=== PATIENT | male | born 1950 | race Caucasian/White ===

== ENCOUNTER 2024-01-24 11:49 | Day surgery (SDC) | payer OTHER ==
[2024-01-24] VITALS (10 sets, daily range): BP systolic 138–154; BP diastolic 79–92
[~2024-01-24] VITALS: Ht 175.3 cm; Wt 107.9 kg
[~2024-01-24 11:49] MED LIST: ASPIR 8181 M1 PO; ATOR20 PO; BUPR150ER PO; ESCI20 PO; FURO20 PO; HYDACE10B PO; IBUP800 PO; JARDIANCE10 MG PO; METF500 PO; METO25ER PO; NALOXONE HCL4 MG; TOLT4 PO
[2024-01-24] MEDS ORDERED: Lactated Ringer's 1,000 ML IV SCH (12:00)
[2024-01-24] MEDS ORDERED: CeFAZolin Sodium 2,000 MG in NS 100 ML IV SCH (12:00)
[2024-01-24] MEDS ORDERED: propofoL 20 ML IV ONE (12:21)
[2024-01-24] MEDS ORDERED: Sugammadex Sodium 200 MG/2ML SDV (100 MG/ML) ONE (12:21)
[2024-01-24] MEDS ORDERED: FentaNYL Citrate 50 MCG/ML 2 ML Injection ONE (12:21)
[2024-01-24] MEDS ORDERED: CeFAZolin Sodium 2,000 MG VIAL ONE (12:27)
[2024-01-24] MEDS ORDERED: Bupivacaine 0.5% HCl 5 MG/ML 30MLVIAL ONE (12:50)
--- NOTE | 2024-01-24 13:14 | NUR ---
History, Chart, Medications and Allergies reviewed before start of procedure. Patient up to Ambulate independently. Gait steady. Pre-Op teaching done. Pt verbalizes understanding. Patient confirms NPO status and agrees with scheduled surgery. Patient reports completing Chlorhexadine shower X1 prior to admission to hospital. Surgical site prepped with 2% Chlorhexidine cloth wipe. Lungs clear T/O to Auscultation. Patient States Post-Procedure ride home has been arranged.
[2024-01-24] MEDS ORDERED: ePHEDrine Sulfate 50 MG/ML 1ML Injection ONE (13:34)
[2024-01-24] MEDS ORDERED: HYDROmorphone HCl/Pf 1MG SYR ONE (14:44)
[2024-01-24] MEDS ORDERED: Rocuronium Bromide 10 MG/ML 5ML Injection IV ONE (14:57)
[2024-01-24] MEDS ORDERED: OxyCODONE 5 mg/Acetamin 325 mg TABLET PO PRN (15:45)
--- NOTE | 2024-01-24 16:43 | NUR ---
1613 REPORT RECEIVED FROM FUNMI OBRIEN. VSS. PT ON RA. PT ABLE TO REPOSITION SELF IN BED. PT REQUESTING PO FOOD AND FLUIDS AND TOLERATING THEM WELL. PT DENIES PAIN, NAUSEA OR OTHER DISCOMFORTS. PT HAS 3 INCISION SITES TO ABDOMEN COVERED WITH DERMABOND THAT ARE C/D/I.
--- NOTE | 2024-01-24 16:45 | NUR ---
Patient up to Ambulate independently. Gait steady. VSS AND CONSISTENT WITH PT BASELINE. PT HAS NO COMPLAINTS AND VERBALIZES READINESS TO GO HOME. Discharge instructions reviewed with patient. Patient verbalizes understanding. Copy given to patient to take home. Dressing to procedure site clean, dry, intact with no visible drainage, swelling, erythema or bruising noted. Patient States Post-Procedure ride home has been arranged. Discharged via wheelchair to private car for ride home. PT BELONGINGS RETURNED TO PT.
== END 2024-01-24 16:47 | disposition home or self-care (01) ==
LOC: ORSCMMR 11:49 → ORD 14:30 → ORSCMMR 16:47
PROVIDERS: Surgery
PROC: 3E0T3BZ Introduction of Anesthetic Agent into Peripheral Nerves and Plexi, Percutaneous Approach (ICD-10-PCS; principal; 2024-01-24 14:30)
PROC: 0YU64JZ Supplement Left Inguinal Region with Synthetic Substitute, Percutaneous Endoscopic Approach (ICD-10-PCS; principal; 2024-01-24 14:30)
DX: K40.30 Unilateral inguinal hernia, with obstruction, without gangrene, not specified as recurrent (principal); K66.0 Peritoneal adhesions (postprocedural) (postinfection); I10 Essential (primary) hypertension; E78.5 Hyperlipidemia, unspecified; J44.9 Chronic obstructive pulmonary disease, unspecified; Z87.891 Personal history of nicotine dependence; E11.9 Type 2 diabetes mellitus without complications; Z79.84 Long term (current) use of oral hypoglycemic drugs; Z79.899 Other long term (current) drug therapy; Z79.82 Long term (current) use of aspirin; E66.9 Obesity, unspecified; Z68.34 Body mass index [BMI] 34.0-34.9, adult
CPT/HCPCS: 82947; C1781; J0690; J1170; J1171; J2704; J3010; J7120

== ENCOUNTER 2024-07-21 10:46 | Day surgery (SDC) | payer OTHER ==
[~2024-07-21] VITALS: Ht 177.8 cm; Wt 114.7 kg
[~2024-07-21 10:46] MED LIST changes: +Balanced Salt Epinephrine Irrigation Solution 500 mL IR SCH; +Diazepam 5 MG Tab PO PRN; +Diazepam 5 MG Tab PO SCH; +Lidocaine HCl/Pf 1% 5 ML VIAL XX SCH; +Midazolam HCl 1MG / ML 2ML Vial ONE; +Moxifloxacin HCL 0.5 MG/0.1 ML 0.4MLSYR RIGHTEYE SCH; +NS 500 ML IV ONE; +Ondansetron 4 MG SoluTab MM PRN; +PHENYLEPHRINE\\TROPICAMIDE\\TETRACAINE OPHTHALMIC DILATING SOLN RIGHTEYE PRN; +Povidone-Iodine 450 DROP/30 ML Solution ONE; +Povidone-Iodine 450 DROP/30 ML Solution RIGHTEYE SCH; +Tetracaine HCl/Pf 0.5% Opth Soln 4 ml ONE
[2024-07-21] MEDS ORDERED: TOLTERODINE TART4 MG PO (11:37)
[2024-07-21] MEDS ORDERED: NS 500 ML IV ONE (12:09)
[2024-07-21] MEDS ORDERED: Atropine Sulfate 0.4 MG/1 ML Vial ONE (12:09)
--- NOTE | 2024-07-21 12:09 | NUR ---
07/21/24 1209 AMANDA LEVI CALL LIGHT WITHIN REACH. TETRACAINE IN RIGHT EYE AT 1127 [address] PL[address] IN AT [address]130. DR. ELIZONDO AWARE OF PT'S BRADYCARDIA, NO FURTHER ORDERS GIVEN. PT DENIES ANY DIZZINESS OR LIGHTHEADEDNESS.
[2024-07-21 12:56] VITALS: BP 147/76
== END 2024-07-21 12:54 | disposition home or self-care (01) ==
LOC: ORSCSDS 10:46
PROVIDERS: Student in an Organized Health Care Education/Training Program
PROC: 08RJ3JZ Replacement of Right Lens with Synthetic Substitute, Percutaneous Approach (ICD-10-PCS; principal; 2024-07-21 12:30)
DX: H25.813 Combined forms of age-related cataract, bilateral (principal); H40.89 Other specified glaucoma; Z87.891 Personal history of nicotine dependence; E78.5 Hyperlipidemia, unspecified; I10 Essential (primary) hypertension; E11.9 Type 2 diabetes mellitus without complications; F43.10 Post-traumatic stress disorder, unspecified; E66.9 Obesity, unspecified; Z68.36 Body mass index [BMI] 36.0-36.9, adult; Z79.82 Long term (current) use of aspirin; Z79.84 Long term (current) use of oral hypoglycemic drugs; Z79.899 Other long term (current) drug therapy
CPT/HCPCS: 82947; J0461; J2250; J7040; V2632

== ENCOUNTER 2024-08-04 11:09 | Day surgery (SDC) | payer OTHER ==
[~2024-08-04] VITALS: Ht 175.3 cm; Wt 108.8 kg
[~2024-08-04 11:09] MED LIST changes: -Diazepam 5 MG Tab PO PRN; -Diazepam 5 MG Tab PO SCH; -Midazolam HCl 1MG / ML 2ML Vial ONE; +Moxifloxacin HCL 0.5 MG/0.1 ML 0.4MLSYR LEFTEYE SCH; -Moxifloxacin HCL 0.5 MG/0.1 ML 0.4MLSYR RIGHTEYE SCH; -Ondansetron 4 MG SoluTab MM PRN; +PHENYLEPHRINE\\TROPICAMIDE\\TETRACAINE OPHTHALMIC DILATING SOLN LEFTEYE PRN; -PHENYLEPHRINE\\TROPICAMIDE\\TETRACAINE OPHTHALMIC DILATING SOLN RIGHTEYE PRN; +Povidone-Iodine 450 DROP/30 ML Solution LEFTEYE SCH; -Povidone-Iodine 450 DROP/30 ML Solution RIGHTEYE SCH; +TOLTERODINE TART4 MG PO
[2024-08-04] MEDS ORDERED: FentaNYL Citrate 50 MCG/ML 2 ML Injection ONE (11:29)
[2024-08-04] MEDS ORDERED: Midazolam HCl 1MG / ML 2ML Vial ONE (11:29)
[2024-08-04] MEDS ORDERED: ALFU10 PO (11:31)
[2024-08-04] MEDS ORDERED: NS 500 ML IV ONE (11:39)
--- NOTE | 2024-08-04 11:40 | NUR ---
08/04/24 1140 Haydee Aguilar IN AT 1130 OK IN AT 1131 CALL LIGHT AT BEDSIDE
[2024-08-04] MEDS ORDERED: Tetracaine HCl 0.5% Opth Soln 15 ml LEFTEYE ONE (11:44)
[2024-08-04] MEDS ORDERED: Glycopyrrolate 0.2 MG/ML 5ML VIAL ONE (11:55)
[2024-08-04] MEDS ORDERED: Rocuronium Bromide 10 MG/ML 5ML Injection IV ONE (11:55)
[2024-08-04 12:12] VITALS: BP 151/86
[2024-08-04] MEDS ORDERED: Tropicamide 1% Opth Soln 15 ML BTL ONE (12:53)
== END 2024-08-04 12:29 | disposition home or self-care (01) ==
LOC: ORSCSDS 11:09
PROVIDERS: Student in an Organized Health Care Education/Training Program
PROC: 08RK3JZ Replacement of Left Lens with Synthetic Substitute, Percutaneous Approach (ICD-10-PCS; principal; 2024-08-04 12:30)
DX: E11.36 Type 2 diabetes mellitus with diabetic cataract (principal); H25.12 Age-related nuclear cataract, left eye; Z96.1 Presence of intraocular lens; H40.89 Other specified glaucoma; E78.5 Hyperlipidemia, unspecified; I10 Essential (primary) hypertension; F43.10 Post-traumatic stress disorder, unspecified; E66.9 Obesity, unspecified; Z68.34 Body mass index [BMI] 34.0-34.9, adult; Z87.891 Personal history of nicotine dependence; Z79.82 Long term (current) use of aspirin; Z79.84 Long term (current) use of oral hypoglycemic drugs; Z79.899 Other long term (current) drug therapy
CPT/HCPCS: 82947; J2250; J3010; J7040; V2632